=== PATIENT | male | born 2000 | race Caucasian/White ===

== ENCOUNTER 2024-01-31 10:10 | Emergency (ER) | payer MEDICAID ==
[~2024-01-31] VITALS: Ht 172.7 cm; Wt 93.0 kg
[2024-01-31 10:27] VITALS: O2SAT 99
[2024-01-31] MEDS ORDERED: VALA100044 MT (11:01)
[2024-01-31] MEDS ORDERED: P50 PO (11:01)
[2024-01-31] MEDS ORDERED: DEXT15DR5 OP (11:01)
[2024-01-31 11:33] VITALS: BP 137/75; PULSE 75; RESP 14; TEMP 98.8
== END 2024-01-31 11:56 | disposition home or self-care (01) ==
LOC: ER 10:10
DX: G51.0 Bell's palsy (principal); R51.9 Headache, unspecified
CPT/HCPCS: 99281; 99283